=== PATIENT | female | born 1990 | race Caucasian/White ===

== ENCOUNTER 2016-08-01 00:40 | Emergency (ER) | payer OTHER ==
[~2016-08-01] VITALS: Ht 170.2 cm; Wt 98.2 kg
[~2016-08-01 00:40] MED LIST: ADVIL,NUPRIN,M200 MG PO; ANTIVERT25 MG PO; COLACE100 MG PO; DILAUDID2 MG PO; NO MEDICATIONS; NORCO 5/3251 TABLET PO; PRENATAL TABLE1 EACH PO; ULTRACET1 TABLET PO; ULTRAM50 MG PO; VENTOLIN HFA18 GM IH; ZOFRAN ODT4 MG PO; ZOFRAN4 MG PO
[2016-08-01 01:45] LABS: HEMATOCRIT 40.1 % (36.0-46.0); MCH 30.7 PG (29.0-34.0); MCHC 34.4 G/DL (30.0-36.0); MCV 89.3 FL (83-99); MEAN PLAT.VOLUME 10.8 uM^3 (9.5-12.4); PLATELET COUNT 199 K/uL (156-360); RBC DIS.WIDTH-SD 41.2 % (39-53); RED BLOOD COUNT 4.49 M/uL (3.80-5.20); WHITE BLOOD COUNT 6.4 K/uL (4.1-10.2)
[2016-08-01 02:02] LABS: CHLORIDE 105 mEq/L (99-109); POTASSIUM 3.8 mEq/L (3.7-5.4); SODIUM 139 mEq/L (136-147)
[2016-08-01 02:04] LABS: GLUCOSE 88 mg/dL (70-99)
[2016-08-01 02:06] LABS: ANION GAP 7 MEQ/L (2-14); TOTAL BILIRUBIN 0.3 mg/dL (0.0-1.0)
[2016-08-01 02:08] LABS: ALKALINE PHOSPHATASE 100 IU/L (3-129); GFR ESTIMATE (CALCULATED) > 59 mL/min/
[2016-08-01 02:09] LABS: UREA NITROGEN (BUN) 9 mg/dL (9-23)
[2016-08-01 02:12] LABS: LIPASE 317 U/L (1.0-51.0)
[2016-08-01 02:21] LABS: QUANTITATIVE HCG < 4.0 MIU/ML
[2016-08-01 02:35] LABS: ADD MIUA? YES; BILIRUBIN NEGATIVE; BLOOD NEGATIVE; COLOR YELLOW ((YELLOW)); GLUCOSE (STRIP) NEGATIVE; KETONES NEGATIVE; LEUKOCYTES NEGATIVE; NITRITE NEGATIVE; PROTEIN (STRIP) NEGATIVE; SPECIFIC GRAVITY 1.022 (1.000-1.030); UROBILINOGEN 0.2 MG/DL (0.2-1.0)
[2016-08-01 02:59] LABS: BACTERIA 1+ /HPF; CASTS NONE SEEN /LPF; CRYSTALS NONE SEEN; EPITHELIAL CELLS 2+ /HPF; MUCUS NONE SEEN /LPF; RED BLOOD CELLS NONE SEEN /HPF (0-5); UCUL ADDED? NO; WHITE BLOOD CELLS 0-5 /HPF (0-5)
[2016-08-01] MEDS ORDERED: ZOFRAN4 MG PO (04:46)
[2016-08-01] MEDS ORDERED: NORCO 5/3251 TABLET PO (04:46)
[2016-08-01 05:30] VITALS: BP 140/104
[2016-08-06] MEDS ORDERED: DICYCLOMINE HCL20 MG PO (06:53)
== END 2016-08-01 05:40 | disposition home or self-care (01) ==
LOC: EME 00:40
DX: K85.90 Acute pancreatitis without necrosis or infection, unspecified (principal); F17.200 Nicotine dependence, unspecified, uncomplicated
CPT/HCPCS: 74177; 80053; 81003; 83690; 84702; 85027; 99281; 99285; J1170; J2405; J7030

== ENCOUNTER → 2016-08-06 | Outpatient (CLI) | payer OTHER ==
[~2016-08-06] VITALS: Ht 170.2 cm; Wt 101.6 kg
[~2016-08-06] MED LIST changes: +DICYCLOMINE HCL20 MG PO
== END | disposition home or self-care (01) ==
LOC: AMB 06-04 10:30
DX: R10.13 Epigastric pain (principal); R10.12 Left upper quadrant pain; K62.5 Hemorrhage of anus and rectum; K64.9 Unspecified hemorrhoids; R01.1 Cardiac murmur, unspecified
CPT/HCPCS: 88305; B4087; J2250; J3010